=== PATIENT | female | born 1960 | race Caucasian/White ===

== ENCOUNTER 2017-03-19 13:35 | Emergency (ER) | payer OTHER ==
[~2017-03-19] VITALS: Ht 167.6 cm; Wt 113.6 kg
[~2017-03-19 13:35] MED LIST: LEVO50 PO; OMEP10 PO; penicillin PO; wellbutrin PO
[2017-03-19 15:12] VITALS: BP 152/82
[2017-03-19] MEDS ORDERED: DiphenhydrAMINE HCL 25 MG CAPSULE PO ONE (15:30)
== END 2017-03-19 16:04 | disposition home or self-care (01) ==
LOC: EMS 13:36
DX: R21 Rash and other nonspecific skin eruption (principal); F12.20 Cannabis dependence, uncomplicated; L98.9 Disorder of the skin and subcutaneous tissue, unspecified; E03.9 Hypothyroidism, unspecified; Z88.6 Allergy status to analgesic agent; Z88.1 Allergy status to other antibiotic agents
CPT/HCPCS: 99282